=== PATIENT | male | born 1945 | race African-American/Black ===

== ENCOUNTER 2016-07-31 08:53 | Outpatient (CLI) | payer SELFPAY | END 2016-07-31 08:54 | disposition EMS.NT | LOC: EMS 08:53 | PROVIDERS: ATTEND Surgery | DX: R55 Syncope and collapse (principal) ==

== ENCOUNTER 2016-08-07 15:19 | Outpatient (CLI) | payer OTHER ==
[2016-08-07 15:43] LABS: BILIRUBIN,URINE NEGATIVE (NEGATIVE); PH,URINE 5.5 PH (5.0-7.5); UA CHARGE (STRIP ONLY) YES; UR CULTURE IF IND NOT INDICATED
[2016-08-07 15:46] LABS: CREATININE 1.4 mg/dL (0.6-1.2)
== END 2016-08-07 15:20 | disposition home or self-care (01) ==
LOC: LAB 15:19
PROVIDERS: ATTEND Physician Assistant Surgical
DX: R35.0 Frequency of micturition (principal)
CPT/HCPCS: 36415; 80048; 81001; 81003; 87086